=== PATIENT | male | born 1940 | race Caucasian/White ===

== ENCOUNTER → 2018-04-16 | Outpatient (CLI) | payer MEDICARE, OTHER ==
[~2018-04-16] MED LIST: ACEPHEN650 M1 RC; ADVAIR HFA 230M12 GM INH; ALBUTEROL SUL5 MG/M1 INH; ALLOPURINOL 10100 M1 PO; ASPIRIN EC81 M1 PO; BROVANA15 MCG/2 M IH; CHILDREN'S325 MG/10. PO; COQ-10100 MG PO; DAILY VITAMIN1 EAC5 PO; DUONEB 2.5-0.5 M3 ML INH; FISH OIL 1,001000 M1 PO; FISH OIL 1,001000 M2 PO; FLORANEX TABLE1 EACH PO; GLUCOPHAGE1000 MG PO; HYDRALAZINE 2525 MG PO; HYDROCHLOROTHIA50 MG PO; LANTUS SUBQ; LASIX 40 MG TAB40 M2 PO; LEVAQUIN 750 M750 MG PO; LIPITOR 20 MG T20 M1 PO; METOLAZONE 5 MG5 MG PO; NEURONTIN 300M300 M2 PO; NORVASC 5 MG TAB5 MG PO; NORVASC5 MG PO; NOVOLOG100 UNIT/1 SUBQ; PERFOROMIS20 MCG/2 M IH; PERFOROMIS20 MCG/2 M INH; PREDNISONE 10 M10 M1 PO; PREDNISONE 10 M10 MG PO; PREDNISONE 20 M20 MG PO; PREVACID 24HR15 MG PO; PREVACID30 MG PO; PRINIVIL40 MG PO; PULMICORT0.25 MG/2 INH; Prevacid PO; SINGULAIR 10 MG10 MG PO; TOPROL XL100 MG PO; ZOCOR40 MG PO
== END ==
LOC: M.ULTRA 11:05
DX: I65.23 Occlusion and stenosis of bilateral carotid arteries (principal); J44.9 Chronic obstructive pulmonary disease, unspecified

== ENCOUNTER → 2018-04-17 | Outpatient (CLI) | payer MEDICARE, OTHER | LOC: M.RAD 12:08 | DX: M25.461 Effusion, right knee (principal); M79.671 Pain in right foot; I70.8 Atherosclerosis of other arteries; M76.51 Patellar tendinitis, right knee; M48.02 Spinal stenosis, cervical region; J44.9 Chronic obstructive pulmonary disease, unspecified ==

== ENCOUNTER 2018-09-28 15:48 | Emergency (ER) | payer MEDICARE, OTHER ==
[~2018-09-28] VITALS: Ht 172.7 cm; Wt 133.4 kg
[2018-09-28 17:05] LABS: HEMATOCRIT 37.8 % (42.0-52.0); HEMOGLOBIN 12.9 gm/dL (14.0-18.0); MCH 34.8 pg (26.0-34.0); MCHC 34.2 g/dL (28.0-37.0); MCV 101.9 fL (80.0-100.0); MPV 11.1 fl. (7.2-11.1); NUCLEATED RBCS 0 /100WBC; PLATELET COUNT* 126 thou/uL (150-400); RBC 3.71 mil/uL (4.50-6.00); RDW-CV 14.5 % (10.5-14.5); WBC 7.6 thou/uL (4.0-11.0)
[2018-09-28 17:10] LABS: CREATININE 1.7 mg/dL (0.6-1.3); POTASSIUM 5.4 mmol/L (3.5-5.1)
[2018-09-28 17:15] LABS: ALBUMIN 2.9 g/dL (3.4-5.0); TOTAL BILIRUBIN 0.6 mg/dL (<0.1-1.0); TOTAL PROTEIN 8.2 g/dL (6.4-8.2)
[2018-09-28 17:42] LABS: ABSOLUTE BASOPHILS 0.1 thou/uL (0.0-0.2); ABSOLUTE EOSINOPHILS 0.2 thou/uL (0.0-0.7); ABSOLUTE MONOCYTES 0.4 thou/uL (0.0-1.2); PLATELET ESTIMATE ADEQUATE
[2018-09-28] MEDS ORDERED: FLAGYL500 M1 PO (18:26)
[2018-09-28] MEDS ORDERED: BENTYL 20 MG TA20 M1 PO (18:26)
[2018-09-28] MEDS ORDERED: CIPROFLOXACIN500 M1 PO (18:26)
[2018-09-28 18:41] VITALS: BP 161/69
--- NOTE | 2018-09-29 16:22 | EKG ---
[place] [address] ELECTROCARDIOGRAM REPORT Name: HUFFMANMELISSA Bishop Room: [facility]#: [id number] Admission: 09/28/18 Attend Phys: Discharge: 09/28/18 Date of : 42 Report #: [id number] THIS REPORT FOR: //name// [facility] ED Test Date: 2018-09-28 Test Time: 18:04:58 Pat Name: MELISSA HUFFMAN Department: Room: Gender: M Block Handler: : 1940 Requested By: Devyn Robins Order Number: [id number] MD: Miguel Mccollum Measurements Intervals [place] Rate: 78 P: 43 VA: 173 QRS: -15 QRSD: 103 T: 49 QT: 392 QTc: 447 Interpretive Statements Sinus rhythm 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
== END 2018-09-28 18:41 | disposition home or self-care (01) ==
LOC: M.ERS 15:48
PROVIDERS: Nurse Practitioner Family
DX: K57.92 Diverticulitis of intestine, part unspecified, without perforation or abscess without bleeding (principal); E11.9 Type 2 diabetes mellitus without complications; I10 Essential (primary) hypertension; G47.30 Sleep apnea, unspecified; E78.5 Hyperlipidemia, unspecified; J44.9 Chronic obstructive pulmonary disease, unspecified; Z79.4 Long term (current) use of insulin

== ENCOUNTER → 2020-03-29 | Outpatient (CLI) | payer MEDICARE, OTHER ==
[~2020-03-29] MED LIST changes: +BENTYL 20 MG TA20 M1 PO; +CIPROFLOXACIN500 M1 PO; +FLAGYL500 M1 PO
== END ==
LOC: M.ULTRA 13:00
DX: R60.0 Localized edema (principal)

== ENCOUNTER 2021-05-04 08:24 | Emergency (ER) | payer MEDICARE, OTHER ==
[~2021-05-04] VITALS: Ht 175.3 cm; Wt 115.5 kg
[2021-05-04 09:04] LABS: ABSOLUTE LYMPHOCYTES 0.6 thou/uL (0.8-5.3); ABSOLUTE MONOCYTES 0.8 thou/uL (0.0-1.2); ABSOLUTE NEUTROPHILS 7.1 thou/uL (1.6-8.1); BASOPHILS 0.4 %; EOSINOPHILS 0.1 %; HEMATOCRIT 26.3 % (42.0-52.0); HEMOGLOBIN 8.8 gm/dL (14.0-18.0); LYMPHOCYTES 7.5 %; MCH 34.1 pg (26.0-34.0); MCHC 33.4 g/dL (28.0-37.0); MCV 102.1 fL (80.0-100.0); MONOCYTES 9.5 %; MPV 10.6 fl. (7.2-11.1); NUCLEATED RBCS 0 /100WBC; PLATELET COUNT* 83 thou/uL (150-400); POLYS 82.5 %; RBC 2.58 mil/uL (4.50-6.00); RDW-CV 17.5 % (10.5-14.5); WBC 8.6 thou/uL (4.0-11.0)
[2021-05-04 09:10] LABS: CALCIUM 8.4 mg/dL (8.5-10.1); CREATININE 5.5 mg/dL (0.6-1.3); POTASSIUM 5.6 mmol/L (3.5-5.1)
[2021-05-04 09:23] LABS: ALBUMIN 2.9 g/dL (3.4-5.0); TOTAL BILIRUBIN 0.5 mg/dL (<0.1-1.0); TOTAL PROTEIN 6.9 g/dL (6.4-8.2)
[2021-05-04 11:15] VITALS: BP 105/69
--- NOTE | 2021-05-04 15:55 | EKG ---
[place] [address] ELECTROCARDIOGRAM REPORT Name: MELISSA HUFFMAN Room: [facility]#: [id number] Admission: 05/04/21 Attend Phys: Discharge: 05/04/21 Date of : 42 Date of Service: 05/04/21905 Report #: [id number] THIS REPORT FOR: //name// [facility] ED Test Date: 2021-05-04 Test Time: 09:06:14 Pat Name: MELISSA HUFFMAN Department: Room: Gender: Assortment Planner: [facility] : 1940 Requested By: Hawk Brantley Order Number: [id number] MD: Yevgeniy Main Measurements Intervals [place] Rate: 90 P: NM: QRS: 60 QRSD: 98 T: 100 QT: 372 QTc: 455 Interpretive Statements sinus rhythm with first degree AV block Ventricular bigeminy nonspecific st segment changes No previous ECG available for comparison Electronically Signed On 05-04-2021 15:55:41 CDT by Yevgeniy Main [email or web address] <ELECTRONICALLY SIGNED> By: Yevgeniy Main MD, [facility] 05/04/21 1555 0906 09 Yevgeniy Main MD, [facility] /EPI
== END 2021-05-04 11:22 | disposition home or self-care (01) ==
LOC: M.ERS 08:24
PROVIDERS: Family Medicine
DX: S00.03XA Contusion of scalp, initial encounter (principal); E11.9 Type 2 diabetes mellitus without complications; I10 Essential (primary) hypertension; J44.9 Chronic obstructive pulmonary disease, unspecified; W18.39XA Other fall on same level, initial encounter; Y93.89 Activity, other specified; Y92.091 Bathroom in other non-institutional residence as the place of occurrence of the external cause; Y99.8 Other external cause status